=== PATIENT | female | born 1985 | race Two or more races ===

== ENCOUNTER 2025-02-09 01:05 | Emergency (ER) | payer MEDICAID, SELFPAY ==
[2025-02-09 01:07] VITALS: BMI 39.1
[2025-02-09 01:58] VITALS: BP 129/75; PULSE 95; RESP 18; TEMP 36.8; O2SAT 97
--- NOTE | 2025-02-09 02:15 | EKG_ITS ---
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
--- NOTE | 2025-02-09 02:15 | XR_ITS ---
Examination: CT brain head without contrast. 2-D sagittal coronal reconstructions Date and time of exam:February 09, 2025, 0237 hrs. Indications: Onset headaches today CTDI: vol (mGy):46.90 DLP: (mGycm):917 Technique: Multiple CT axial sections of the brain have been obtained, 5 mm slice thickness. Contrast has not been administered. 2-D sagittal, coronal reconstructions have been obtained Low dose protocols were performed. One or more of the following dose reduction techniques were used; automated exposure control, adjustment of the mA and/or KV according to patient size, use of iterative reconstruction technique. Findings: No significant ventricular enlargement. Intra-axial or extra-axial hemorrhage density is not seen. No mass effect or midline shift Basal cisterns are not remarkable. Fourth ventricle is midline. Cranial vault intact. Impression: Negative for acute hemorrhage, mass effect or midline shift
--- NOTE | 2025-02-09 02:16 | PD.EDRME ---
Rapid Medical Screening Exam RME Arrival date/time: 02/09/25 01:05 This is a case of 40-year-old female with no medical history came in in the emergency room due to headache and chest pain for 1 day associated with dizziness and nausea denies any head injury denies any blurring of vision persistence of the symptoms this patient decided to start consult her in the emergency room Chief Complaint: General Adult/Misc Complain Time Seen by Provider: 02/09/25 01:34 Vital signs: Vital Signs Temperature 98.3 F 02/09/25 01:58 Pulse Rate 95 02/09/25 01:58 Respiratory Rate 18 02/09/25 01:58 Blood Pressure 129/75 02/09/25 01:58 Pulse Oximetry (%) 97 02/09/25 01:58 Oxygen Delivery Method Room Air 02/09/25 01:58
[2025-02-09 02:55] LABS: Basophils # (Auto) 0.1 Thou/mm3 (0.0-0.2); Basophils % (Auto) 1 % (0-2.5); Eosinophils # (Auto) 0.2 Thou/mm3 (0.0-0.5); Eosinophils % (Auto) 2 % (0-10); Hematocrit 35.8 % (36.0-46.0); Hemoglobin 11.4 g/dL (12.0-16.0); Immature Granulocytes Auto 0.02 Thou/mm3 (0.00-0.00); Lymphocytes # (Auto) 3.2 Thou/mm3 (1.0-4.8); Lymphocytes % (Auto) 34 % (10-50); Mean Corpuscular HGB Conc 31.8 g/dl (31.0-37.0); Mean Corpuscular Hemoglobin 25.9 pg (25.0-35.0); Mean Corpuscular Volume 81 fL (80-100); Monocytes # (Auto) 0.7 Thou/mm3 (0.0-0.8); Monocytes % (Auto) 7 % (0-12); Neutrophils # (Auto) 5.2 Thou/mm3 (1.8-7.7); Neutrophils % (Auto) 56 % (37-80); Nucleated Red Blood Cell # 0.00 Thou/mm3 (0.00-0.00); Nucleated Red Blood Cell % 0 /100 WBC (0); Platelet Count 361 Thou/mm3 (140-440); RDW Standard Deviation 46.4 fL (36.4-46.3); Red Blood Count 4.41 Miln/mm3 (4.00-5.20); White Blood Count 9.4 Thou/mm3 (3.6-11.0)
--- NOTE | 2025-02-09 02:59 | PRELIM_ITS ---
CT scan of the head without intravenous contrast (axial sections with sagittal and coronal reformats). February 09, 2025 0237 hours Clinical History: headache Comparison: None Findings: There is no intracranial hemorrhage, extra-axial collection, mass, mass-effect or midline shift. There is good zaragoza-white differentiation. There is no CT evidence of acute large vascular territorial infarct. Ventricles are not enlarged or effaced. Minimal basal ganglia calcification suggested in the cerebral hemispheres. Visualized paranasal sinuses and tympanomastoid cavities are clear. The bony calvarium is intact. Impression: No intracranial hemorrhage, mass-effect or midline shift. No CT evidence of acute large vascular territorial infarct. Report Electronically Signed By: Aguilar Jackson 02/09/2025 2:59:24 AM [EST]
[2025-02-09 03:20] LABS: Alanine Aminotransferase 23 U/L (10-49); Albumin, Serum 4.9 gm/dL (3.5-5.0); Albumin/Globulin Ratio 1.4 (1.2-2.2); Alkaline Phosphatase 92 U/L (46-116); Anion Gap 9 (7-16); Aspartate Amino Transferase 21 U/L (0-34); BUN/Creatinine Ratio 13 Ratio (12-20); Bilirubin,Total 0.3 mg/dL (0.3-1.2); Blood Urea Nitrogen 9 mg/dL (9-23); Calcium 9.6 mg/dL (8.3-10.6); Calcium (Corrected) 9.6 mg/dL (8.5-10.1); Carbon Dioxide 23.8 mMol/L (20.0-31.0); Chloride 106 mMol/L (98-107); Creatinine (Component) 0.7 mg/dL (0.6-1.3); Estimated Creatinine Clearance 117.3 mL/min (>60); Globulin 3.6 gm/dL (2.3-3.5); Glucose 147 mg/dL (74-106); Osmolality,Calculated 279 (275-295); Potassium 3.7 mMol/L (3.4-5.1); Sodium 139 mMol/L (136-145); Total Protein 8.5 gm/dL (5.7-8.2); Troponin I < 0.002 ng/mL (0.0-0.045); eGFR > 60 See Note
--- NOTE | 2025-02-09 03:32 | EDNOTE_ITS ---
ED Headache RME/HPI General Chief Complaint: General Adult/Misc Complain Stated Complaint: FACE GETS FLUSHED AND HEADACHE Time Seen by Provider: 02/09/25 01:34 Arrival date/time: 02/09/25 01:05 RME / HPI RME / HPI Narrative: 02/09/25 01:05 This is a case of 40-year-old female with no medical history came in in the emergency room due to headache and chest pain for 1 day associated with dizziness and nausea denies any head injury denies any blurring of vision persistence of the symptoms this patient decided to start consult her in the emergency room DR. MENDOSA MAIN ED EVALUATION: Patient present bi-temporal/occipital throbbing GOSS of 2-3 days duration, associated nausea without emesis or photosensitivity. No exacerbation with exertion. No UE/LE weakness or parasthesis. Denies fever, URI, or flu-like symptoms. PMH: DM, HTN, Hypercholesterolemia. PSH: . Allergies: None. Related Data Home Medications ?Medication ?Instructions ?Recorded ?Confirmed metformin 500 mg tablet 500 mg PO BID 06/30/2007/10 Previous Rx's ?Medication ?Instructions ?Recorded hydrocodone 5 mg-acetaminophen 325 1 tab PO Q8H PRN pa in #7 tabs 07/12/20 mg tablet ([place]) ibuprofen 400 mg tablet 400 mg PO Q8H PRN pain #14 t abs 07/12/20 iygebpxtbk-olnnbvhrbbure-jskzccec 1 cap PO Q8H PRN alex n #20 caps 02/09/25 50 mg-300 mg-40 mg capsule (Fioricet) prochlorperazine maleate 5 mg 5 mg PO BID PRN nausea a nd 02/09/25 tablet (Compazine) vomiting #10 tabs Allergies Allergy/AdvReac Type Severity Reaction Status Date / Time No Known Allergies Allergy Verified 02/09/25 01:12 Review of Systems Review of Systems Systems Reviewed: All systems reviewed, normal except as documented Past Medical History Past Medical History CARDIAC: Positive Hypercholesterolemia and Hypertension GASTROINTESTINAL: Positive Gastrointestinal Disorders (HX. GASTRITIS.) REPRODUCTIVE: Positive Previous Pregnancies ENDOCRINE: Positive Endocrine Disorders and Diabetes Mellitus Type 2 OTHER HISTORY: Positive Hospitalization (CHILDBIRTH) and Chicken Pox Family History FAMILY HISTORY: Positive Family Cancer (SISTER AND MATERNAL AUNT UTERINE CA.) and Family Surgery (SISTER HYSTERECTOMY) ED Exam Narrative Physical exam: GEN. APPEARANCE: The patient is alert awake oriented X-3 in no distress but c/o mild GOSS, lying down comfortably, does not look ill/toxic. Patient has good eye contact. Patient is cooperative. VITALS: All vitals were reviewed and the pulse ox is 97% on room air which is normal according to my interpretation. HEENT: Normocephalic, atraumatic. Pupils are equal and reactive. Fundoscopic exam normal. Oral mucosa is moist. Patent Nares. Positive allodynia. Fundoscopic exam normal. Positive allodynia. NECK: Supple, nontender, no thyromegaly, no meningismus, no JVD, no step offs CHEST: Symmetrical, atraumatic, and with equal expansion , Nontender on palpation no deformity and no crepitus. CARDIOVASCULAR: Heart regular rhythm no murmur or gallop rub or extra beats. LUNGS: Clear to auscultation bilaterally with symmetrical chest rise. No laboring tachypnea or wheezing. No intercostal subcostal retraction. No rales and no rhonchi. ABDOMEN: Soft, flat, nontender to palpation, no guarding or rebound tenderness. There are no abnormal masses palpated. Active and normal bowel sounds. EXTREMITIES: Nontender. No edema. No cyanosis. Patient is able to move all 4 extremities well, with full ROM and good CSM. SKIN: Warm and dry, no jaundice or rashes noted. MUSCULOSKELETAL: No lubar or midline bony tenderness. There is no CVA tenderness. No paraspinal muscle spasm or tenderness. NEURO: Patient is LUQUE x 4, Cranial nerves II through XII grossly intact. There is no focal neurologic deficits noted. GCS is 15, PNS and ACID PLANT HELPER appear grossly intact. Brandy, qdzbmd-ek-ggkl and gait. PSYCHIATRIC: Patient is in normal mood and affect, cooperative, no SI or HI or hallucinations. Course Quality Measures none Orders Category Date Time Status EKG (ED ONLY) *Do not use* NOW Care 02/09/25 02:[address] head/brain wo con Stat Exams 02/09/25 02:15 Completed EKG (ED Only) Stat Exams 02/09/25 02:15 Draft CBC Stat Lab 02/09/25 02:40 Completed Comprehensive Metabolic Panel Stat Lab 02/09/25 02:40 Completed Troponin I Stat Lab 02/09/25 02:40 Completed HYDROcodone*/APAP 5/325 [[place] 5/325] Med 02/09/25 04:00 Discontinued 1 tab PO X1 ONE Prochlorperazine Maleate [Compazine] Med 02/09/25 04:00 Discontinued 5 mg PO X1 ONE Vital Signs Vital signs: Vital Signs Temperature 98.3 F 02/09/25 01:58 Pulse Rate 95 02/09/25 01:58 Respiratory Rate 18 02/09/25 01:58 Blood Pressure 129/75 02/09/25 01:58 Pulse Oximetry (%) 97 02/09/25 01:58 Oxygen Delivery Method Room Air 02/09/25 01:58 Headache MDM Narrative MDM Narrative:: Scribe Attestation: Norah Flowers, am scribing for and in the presence of Dr. Mendosa. Provider Notation: Although this document has been carefully reviewed, there may still be some phonetic and other typographical errors. These errors are purely grammatical due to imperfections in the software program and should not be construed in any way to compromise the substance of the patient's medical care during this visit. Patient present bi-temporal/occipital throbbing GOSS of 2-3 days duration, associated nausea without emesis or photosensitivity. No exacerbation with exertion. No UE/LE weakness or parasthesis. Please see PE findings. Laboratory markers including CBC demonstrate normal WBC. Patient with stable anemia. Serum chemistries essentially unremarkable. UA with evidence of infection. CT hea d/brain was obtained and unremarkable for acute process. Patient's presentation slightly suggestive of migranous pattern. Will treat accordingly for new onset migraine. Disposition, patient will be discharged to home on a prescription for fenergan and ferunial. Patient data External records reviewed:: [facility] previous records (Reviewed prior ED records from 07/04/23. Patient was seen for Costochondritis.) Clinical information provided by:: patient Social determinants that could affect healthcare access:: none Patient has the following chronic illnesses:: DM, HTN, Hypercholesterolemia, Gastritis How is presenting disease/condition affected by chronic disease/condition?: exacerbated by Evaluation data The following diagnostics were reviewed and interpreted by me:: lab results, radiology exam(s) and EKG tracing(s) (EKG at 02:19 shows normal sinus rhythm at 96, leftward axis, no ectopy, no signs of acute ischemia, per my interpretation.) Lab and/or radiology exams considered but not ordered:: None Interpretation Summary: RADIOLOGY Head/Brain CT: Findings: No significant ventricular enlargement. Intra-axial or extra-axial hemorrhage density is not seen. No mass effect or midline shift Basal cisterns are not remarkable. Fourth ventricle is midline. Cranial vault intact. Impression: Negative for acute hemorrhage, mass effect or midline shift Medications / Prescriptions Medications or Prescriptions considered but not ordered:: None Medication administrations:: Medication Administration History Discontinued Medications Hydrocodone Bitart/Acetaminophen (Hydrocodone/Apap 5/325 Tablet) 1 tab PO X1 ONE Stop: 02/09/25 04:01 Last Admin: 02/09/25 04:55 Dose: 1 tab Documented By: FRANC Prochlorperazine Maleate (Prochlorperazine Maleate 5 Mg Tablet) 5 mg PO X1 ONE Stop: 02/09/25 04:01 Last Admin: 02/09/25 04:56 Dose: 5 mg Documented By: FRANC See above if any Consultations Consultation(s) initiated? (list below): No Diagnosis Differential diagnosis headache: migraine, tension headache, headache and sinusitis Most likely diagnosis given after review of the tests above:: New onset migraine Admission Indicated Admission indicated?: not indicated Explain why admission is indicated or not indicated:: Patient does not meet admission criteria. Admission Request Was there a request for admission?: No Disposition Plan Disposition Plan: Discharge Discharge Attestation Discharge Attestation: The patient and all family members were given an opportunity to ask questions and understood the discharge instructions. Discharge instructions specifically effects, indications for sooner follow up or return to the emergency department, and the expected course of current diagnosis. Patient condition: Stable Discharge Plan Plan Patient Disposition: HOME (Self Care) Discharge Disposition comment: Stable Prescriptions/Referrals Prescriptions/Med Rec: New umuwezdjxh-mvcowpzxrrtye-lbdt [Fioricet] 50-300-40 mg capsule 1 cap PO Q8H PRN (Reason: pain) Qty: 20 0RF prochlorperazine maleate [Compazine] 5 mg tablet 5 mg PO BID PRN (Reason: nausea and vomiting) Qty: 10 0RF Rx Instructions: may also take every 6 hrs for headache No Action metformin 500 mg Tablet 500 mg PO BID hydrocodone-acetaminophen [[place]] 5-325 mg tablet 1 tab PO Q8H MDD 3 PRN (Reason: pain) Qty: 7 0RF ibuprofen 400 mg tablet 400 mg PO Q8H MDD 4 PRN (Reason: pain) Qty: 14 0RF Referrals: No Primary/Family,Physician [Primary Care Provider] - In 1 week Problem List Clinical Impression: Headache, migraine Patient/Caregiver Discharge Instructions Discharge Activity: activity as tolerated Education Materials: ED Headache, Migraine, Classic Additional Instructions: Medications as directed. Dark room close cool compresses/follow-up with primary care doctor in 5 to 7 days return if worsening. Print Language: Greenlandic Stand Alone Forms: Ingrid Award Info., Patient Portal Info Letter
[2025-02-09] MEDS: HYDROcodone/APAP 5/325 TABLET 1 TAB PO (04:55)
[2025-02-09] MEDS: PROCHLORPERAZINE MALEATE 5 MG TABLET PO (04:56)
== END 2025-02-09 05:22 | disposition home or self-care (01) ==
PROVIDERS: Nurse Practitioner Family; Emergency Provider Emergency Medicine
DX: G43.909 Migraine, unspecified, not intractable, without status migrainosus (principal); R94.31 Abnormal electrocardiogram [ECG] [EKG]; I10 Essential (primary) hypertension; E78.00 Pure hypercholesterolemia, unspecified
CPT/HCPCS: 36415; 70450; 80053; 81001; 81025; 84484; 85025; 93005; 99284; Q0164; A9270

== ENCOUNTER 2025-04-15 14:00 | Outpatient (AMB) | payer MEDICAID, SELFPAY ==
[2025-04-15 14:46] VITALS: BP 133/81; PULSE 100; RESP 18; TEMP 36.2; O2SAT 98; BMI 38.1
--- NOTE | 2025-04-15 14:46 | OBCLNT_ITS ---
Vital Signs 04/15/25 14:46 Height 1.57 m Height Method Stated Weight 93.95 kg Weight Measurement Method Standing Scale BMI 38.1 BP 133/81 H Blood Pressure Source Automatic Cuff Blood Pressure Location Left Upper Arm Position Sitting Respiration 18 Pulse 100 Pulse Source Monitor Temp 97.2 F Temp Source Oral Pulse Oximetry (%) 98 Oxygen Delivery Method Room Air Allergies/Home Meds Allergies & Medications Allergies No Known Allergies Allergy (Verified 04/15/25 14:47) Medication Reconciliation metformin 500 mg tablet 500 mg PO BID 06/30/20 [History Confirmed 04/15/25] hydrocodone 5 mg-acetaminophen 325 mg tablet ([place]) 1 tab PO Q8H PRN pain #7 tabs 07/12/20 [Rx Confirmed 04/15/25] ibuprofen 400 mg tablet 400 mg PO Q8H PRN pain #14 tabs 07/12/20 [Rx Confirmed 04/15/25] vukfufqjoy-lqucmbufzszbs-nytilhop 50 mg-300 mg-40 mg capsule (Fioricet) 1 cap PO Q8H PRN pain #20 caps 02/09/25 [Rx Confirmed 04/15/25] prochlorperazine maleate 5 mg tablet (Compazine) 5 mg PO BID PRN nausea and vomiting #10 tabs 02/09/25 [Rx Confirmed 04/15/25] blood sugar diagnostic (Blood Glucose Test strips) #50 ea 04/15/25 [Rx] lancets #100 ea 04/15/25 [Rx] Intake Visit Data Collection New Patient or Established: Established Patient (seen at [facility] within 3 years) Reason for Visit:: OB TRANSFER Seen by Clinical Staff ONLY (RN/MA): No Resin Mixer Required: No Do You Feel Safe at Home: Yes Authorities Contacted: N/A PCP or OBGYN visit in last 3 months: Yes Date of Last PCP or OBGYN visit: 02/09/25 Hx Now: Yes Are you currently on any form of Control: No Last menstrual period: 12/16/24 Pain Present Currently: No Pain Scale Used: Terrell-Rosales/Numerical Pain scale:: 0 Smoking Status Smoking Status: Never smoker Immunizations Flu Vaccine in the Last 12 Months: No Flu Vaccine Exclusion Criteria: No Exclusion Criteria Questionnaires Covid-19 Vaccine Questionnaire Has patient been vacinated for Covid-19 Have you been vacinated for Covid-19: Yes PHQ-9 PHQ-2 Over the last 2 weeks, how often have you been bothered by any of the following problems? 1. Little interest or pleasure in doing things: not at all 2. Feeling down, depressed, or hopeless: not at all Total score: 0 PHQ-9 3. Trouble falling or staying asleep, or sleeping too much: Not at all 4. Feeling tired or having little energy: Not at all 5. Poor appetite or overeating: Not at all 6. Feeling bad about yourself - or that you are a failure or have let yourself or your family down: Not at all 7. Trouble concentrating on things, such as reading the newspaper or watching television: Not at all 8. Moving or speaking so slowly that other people could have noticed? - Or the opposite - being so fidgety or restless that you have been moving around a lot more than usual: not at all 9. Thoughts that you would be better off or of hurting yourself in some way: Not at all Total score: 0 If you checked off any problems, how difficult have these problems made it for you to do your work, take care of things at home, or get along with other people?: not difficult at all Source: Developed by Drs. Monty Encinas, Cindy Adams, Emmanuel English and colleagues, with an educational golden from [employer]. Depression screen completed yes Social History Living Situation History Marital Status: Lives With: Family Housing: Apartment Tobacco History Smoking Status: Never smoker Second Hand Smoke Exposure: No Alcohol History Alcohol Intake: Never Domestic Abuse History Do You Feel Safe at Home: Yes History of Present Illness HPI Narrative 40-year-old 3 para 2 for OBI. Patient's initial visit was that [facility]. She has records with her including labs. Last. January 02, 2025. This gives an EDC of October 09, 2025. Patient has a history of a x 1 with her second . There was oligo. History of type 2 diabetes. Patient was diagnosed prior to is prediabetic at 3-hour GTT was done and it was abnormal. Patient also has chronic hypertension. She is taking nifedipine ER 30 mg daily. And her blood pressures she states have been mostly 130s over 80s. Denies social habits. No leaking no bleeding. Patient has an ultrasound pending but she is not sure reports that. And patient was told to stop her metformin 500 mg twice daily. 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 GASTRITIS.), No Hx Renal Disease, No Hx Diabetes Mellitus Type 1 and Yes Hx Diabetes Mellitus Type 2 OB Initial Visit OB Flowsheet OB Flowsheet Initial Weight: Not Recorded Date -?-?-?-?-?-?-?-?-?-?-?-?- EGA Weight BP Alb Glu CTX Pres Fundal ht FHR Mov Dilation Station Effacement Hx Notes Visit Note 04/15/25 -?-?-?-?-?-?-?-?-?-?-?-?- 14w 5d 93.95 kg 133/81 absent unknown 15 156 absent 40-year-old 3 para 2 for OBI. She is a transfer from [facility] with records. Last period January 02. This gives an EDC of October 09, 2025. Patient has a history of prediabetes. She had a 3-hour with the that was abnormal. Patient was started then with metformin 500 twice daily but she was told to stop it. Patient also has chronic hypertension. She takes nifedipine ER 30 mg. Patient goes to [facility] for both the diabetes and her chronic hypertension. Denies leaking, bleeding, contractions. She does not feel movement yet and patient stopped her metformin and was told to stop until she saw a provider. Patient is also a previous x 1 Schedule a maternal- medicine appointment at [facility]. Continue the nifedipine ER 30 mg. And then I consulted OB and patient is to restart her metformin 500 twice daily. She is to continue to follow GDM diet. To walk 40 minutes a day. 10 minutes after meals. And log her sugars 4 times a day. Bring those with her for her next appointment for evaluation. I advised patient to see her primary care at [facility] this week. Get an order for an EKG and also eye exam. We did a 24-hour protein was ordered today along with NIPT and spinal muscular atrophy screen. Discussed SAB precautions and return in 3 weeks for AFP and follow-up Menstrual History Menstrual reliability: definite Flow: normal Menstrual regularity: regular Monthly: Yes Age at menarche: 12 On control pills at conception: No OB History : 3 Para: 2 # of Living Children: 2 Delivery History 1st : Child's name: NOT PROVIDED date: 08/19/07 sex: female Delivery type: vaginal History of depression before or after : No 2nd : Child's name: NOT PROVIDED date: 07/10/20 sex: female Delivery type: History of depression before or after : No Infection History & Risk Evaluation History of STDs: none HIV risk evaluation: low risk Hepatitis B risk evaluation: low risk Patient or partner has history of Genital Herpes: No Varicella/chicken pox status: immunized Genetic Screening & History Genetic Screening/Teratology Counseling - Includes patient, baby's father, or anyone in either family with: 1. Patient's age 35 years or older as of estimated date of delivery: Yes 2. Thalassemia (Yemeni, Israeli, Mediterranean, or Background); MCV less than 80: No 3. Neural Tube Defect (Meningomyelocele, Spina Bifida, or Anencephaly): No 4. Congenital Heart Defect: No 5. Down Syndrome: No 6. Jerry-Sachs (Ashkenazi Anglican, Cajun, Thai Fallon): No 7. Andre Disease (Ashkenazi Anglican): No 8. Familial Dysautonomia (Ashkenazi Anglican): No 9. Sickle Cell Disease or Trait (): No 10. Hemophilia or other blood disorders: No 11. Muscular Dystrophy: No 12. Cystic Fibrosis: No 13. Raf's Chorea: No 14. Mental Retardation/Autism: No 15. Other inherited genetic or chromosomal disorder: No 16. Maternal Metabolic Disorder (EG,TYPE 1 Diabetes, PKU): No 17. Patient or baby's father had a child with defects not listed above: No 18. Recurrent loss or a stillbirth: No 19. Medications (including supplements, vitamins, herbs or otc drugs)/illicit/recreational drugs/alcohol since last menstrual period: No 20. Any other: No Infection History 1. Live with someone with TB or exposed to TB: No 2. Rash or viral illness since last menstrual period: No 3. Hepatitis B,C: No Other (see comments) Source: [employer] Review of Systems Review of Systems Systems Reviewed: All systems reviewed, normal except as documented Exam General Limitations: no limitations General Appearance: alert, in no apparent distress, comfortable, cooperative, healthy appearing, well developed and well groomed Head Head exam: atraumatic, normocephalic and normal inspection Chest Chest inspection: Present normal inspection and symmetric chest wall rise Resp Respiratory exam: Present normal lung sounds bilaterally Card Cardiovascular exam: Present regular rate, normal rhythm and normal heart sounds Abdominal Abdominal exam: Present soft and normal bowel sounds Psych Psychiatric exam: Present normal affect and normal mood Office Procedures OBC Clinic LOC & Office Proc's Nursing/Assessment Patient Status: Established Patient OB Clinic Nursing Assessment: Medication Reconciliation, Update PMH in EMR and Vital Signs OB Clinic Coordination of Care: Consent,records obtained, informed consent, Education Simp Pt/Fam, Lab and Imaging orders, Results/Orders obtained and Staff clarify orders Special Needs: Heart tones Established Patient Charge Established Patient Point Assignment: 110 Established Patient Point Charge: EP Level 3 (80-115) Assessment & Plan Diagnosis / Problem List (1) High-risk in third trimester: Status: Acute (2) Advanced maternal age (AMA) in : Status: Acute (3) Chronic hypertension with exacerbation during in third trimester: Status: Acute (4) Diet controlled gestational diabetes mellitus (GDM) in third trimester: Status: Acute Plan Restart metformin 500 twice daily. Continue nifedipine extended release 30 mg daily. Patient to continue monitoring her blood sugars 4 times a day. I refilled her lancets and test strips. I reviewed diet and weight gain. I asked patient to continue to log her blood sugar results and bring them to her next visit. Reviewed labs today. Ordered 24-hour protein baseline. And then spinal muscular atrophy was ordered. And NIPT ordered. Schedule patient with maternal- medicine for and anatomy scan. And patient is also scheduled maybe at [facility] and she was advised to keep that. Walk 40 minutes a day and 10 minutes after meals. Patient is making an appointment with her primary care for EKG and eye exam at [facility]. Will schedule patient with OB because of previous x 1, chronic hypertension and type II DM on metformin return in 3 weeks for AFP and follow-up OB check Additional Plan Follow Up: 3 Weeks (OBC/AFP)
== END 2025-04-15 15:22 | disposition home or self-care (01) ==
LOC: HODSOBC 14:00
PROVIDERS: Supervising Provider Advanced Practice Midwife; Visit Provider Advanced Practice Midwife
DX: O09.522 Supervision of elderly multigravida, second trimester (principal); O09.892 Supervision of other high risk pregnancies, second trimester; O10.912 Unspecified pre-existing hypertension complicating pregnancy, second trimester; O24.112 Pre-existing type 2 diabetes mellitus, in pregnancy, second trimester; O09.292 Supervision of pregnancy with other poor reproductive or obstetric history, second trimester; O34.219 Maternal care for unspecified type scar from previous cesarean delivery; Z3A.14 14 weeks gestation of pregnancy; Z79.84 Long term (current) use of oral hypoglycemic drugs; Z79.899 Other long term (current) drug therapy
CPT/HCPCS: 99213; G0463

== ENCOUNTER → 2025-04-22 | Outpatient (CLI) | payer MEDICAID, SELFPAY ==
--- NOTE | 2025-04-22 12:30 | XR_ITS ---
Examination: Complete OB ultrasound, greater than 14 weeks, transabdominal Date and time of exam: April 22, 2025, 1234 hours INDICATIONS: Size dates discrepancy Technique: Obstetrical ultrasound images less than 14 weeks performed via transabdominal imaging Findings: A normal shaped single intrauterine gestation is present in the uterus. presentation variable Cardiac motion 141 bpm Placenta fundal grade 1 Umbilical cord insertion 3 vessel seen Amniotic fluid index 15.0 cm Ovaries obscured by bowel gas Ultrasonographic survey of visible and placental structures unremarkable. Amniotic fluid volume appears appropriate for this estimated gestational age. Estimated gestational age 16 weeks 2 days Estimated weight 145.6 g. bladder stomach and spine seen IMPRESSION: Viable intrauterine gestation in variable presentation Estimated gestational age 16 weeks 2 days Estimated weight 145.6 g
== END | disposition home or self-care (01) ==
LOC: CDIM 12:19
PROVIDERS: PCP Nurse Practitioner Family; Referring Provider Nurse Practitioner Family; Visit Provider Nurse Practitioner Family
DX: O26.841 Uterine size-date discrepancy, first trimester (principal); Z3A.16 16 weeks gestation of pregnancy
CPT/HCPCS: 76801

== ENCOUNTER 2025-05-13 09:24 | Outpatient (AMB) | payer MEDICAID, SELFPAY ==
--- NOTE | 2025-05-13 09:29 | OBCLNT_ITS ---
Vital Signs 05/13/25 09:43 Height 1.57 m Height Method Stated Weight 100.698 kg Weight Measurement Method Standing Scale BMI 40.8 BP 145/78 H Blood Pressure Source Automatic Cuff Blood Pressure Location Left Upper Arm Position Sitting Respiration 18 Pulse 91 Pulse Source Monitor Temp 97.2 F Temp Source Oral Pulse Oximetry (%) 98 Oxygen Delivery Method Room Air Allergies/Home Meds Allergies & Medications Allergies No Known Allergies Allergy (Verified 05/13/25 09:45) Medication Reconciliation hzswuutajf-xyidypdcadtwa-eikjjzcx 50 mg-300 mg-40 mg capsule (Fioricet) 1 cap PO Q8H PRN pain #20 caps 02/09/25 [Rx Confirmed 05/13/25] blood sugar diagnostic (Blood Glucose Test strips) #100 ea 05/13/25 [Rx] blood-glucose meter #1 ea 05/13/25 [Rx] lancets 21 gauge #100 ea 05/13/25 [Rx] metformin 1,000 mg tablet 1,000 mg PO BIDWMEAL 30 days #60 tabs 05/13/25 [Rx] nifedipine 60 mg tablet,extended release 60 mg PO QDAY #30 tabs 05/13/25 [Rx] Immunizations Immunizations Flu Vaccine in the Last 12 Months: No Flu Vaccine Exclusion Criteria: Refused by Patient Care OB Visit Log OB Flowsheet Initial Weight: Not Recorded Date -?-?-?-?-?-?-?-?-?-?-?-?- EGA Weight BP Alb Glu CTX Pres Fundal ht FHR Mov Dilation Station Effacement Hx Notes Visit Note 04/15/25 -?-?-?-?-?-?-?-?-?-?-?-?- 14w 5d 93.95 kg 133/81 absent unknown 15 156 absent 40-year-old 3 para 2 for OBI. [facility]. Last period January 02. This gives an EDC of October 09, 2025. Patient has a history of prediabetes. She had a 3-hour with the that was abnormal. Patient was started then with metformin 500 twice daily but she was told to stop it. Patient also has c hronic hypertension. She takes nifedipine ER 30 mg. Patient goes to [facility] for both the diabetes and her chronic hypertension. Denies leaking, bleeding, contractions. She does not feel movement yet and patient stopped her metformin and was told to stop until she saw a provider. Patient is also a previous x 1 Schedule a maternal- medicine appointment at [facility]. Continue the nifedipine ER 30 mg. And then I consulted OB and patient is to restart her metformin 500 twice daily. She is to continue to follow GDM diet. To walk 40 minutes a day. 10 minutes after meals. And log her sugars 4 times a day. Bring those with her for her next appointment for evaluation. I advised patient to see her primary care at [facility] this week. Get an order for an EKG and also eye exam. We did a 24-hour protein was ordered today along with NIPT and spinal muscular atrophy screen. Discussed SAB precautions and return in 3 weeks for AFP and follow-up 05/13/25 -?-?-?-?-?-?-?-?-?-?-?-?- 18w 5d 100.698 kg 145/78 absent unknown 172 absent - She reports taking her blood pressure medication (labetalol) once in the morning as prescribed. - Current blood pressure remains eleva hua at 133/81 mmHg despite medication compliance. - Patient has pre-existing diabetes that was present before this . - Previously was taking metformin 1000 mg twice daily (total 2000 mg daily). - Reports she does not currently take any diabetes medication. - Does not have a glucometer to check blood sugars at home. - She has been receiving care w syd Alvarez (presumably another provider) up to this point. - Patient has an upcoming ultrasound kishan ointment scheduled in [place]. - She reports knowing how to use a glucometer from prior experience . - Increase blood pressure medication dose (currently taking labetalol once in the morning) - Start metformin 1000mg twice daily for diabetes management - Provide glucometer and supplies for bl ood sugar monitoring - Patient to check blood sugars and brin g numbers for medication adjustment - Follow up in 2 weeks to review blood s ugar readings - Continue care with Kim BUTTERFIELD Calculator Estimated Delivery Date Method Current WG Current Estimate 10/09/25 LMP (Certain) 18w 5d Notes Visit Date: 04/15/25 Last Updated by: Kim Conway CNM 40 yo . prev c/sx1. type 2 DM and CHTN O+,abs-, rpr;;nr, rub imm, HBSAG-,HIV-, HC-, GC/CT-, UT-,UA-,CF-, /, A1c: 6.6, glucose: 121. TSH wnl, ALT: 34, creatine: 0.61, BUN/creatine ratio: 16 Office Procedures OBC Clinic LOC & Office Proc's Nursing/Assessment Patient Status: Established Patient OB Clinic Nursing Assessment: Medication Reconciliation, Update PMH in EMR and Vital Signs OB Clinic Coordination of Care: Consent,records obtained, informed consent, Education Simp Pt/Fam, Lab and Imaging orders, Results/Orders obtained and Staff clarify orders Special Needs: Heart tones Established Patient Charge Established Patient Point Assignment: 110 Established Patient Point Charge: EP Level 3 (80-115) Assessment & Plan Diagnosis / Problem List (1) Type 2 diabetes mellitus affecting in second trimester, antepartum: Status: Acute (2) Supervision of high risk , unspecified, second trimester: Status: Acute (3) Chronic hypertension with exacerbation during in third trimester: Status: Acute (4) Advanced maternal age (AMA) in : Status: Acute Plan Problem List - Gestational diabetes mellitus - Chronic hypertension in - Intrauterine growth restriction Assessment The patient is a 3, para 2 at 18 weeks and 5 days gestation with chronic hypertension currently managed on labetalol with persistently elevated blood pressure of 133/81 mmHg despite medication compliance, requiring dose adjust ment. She has gestational diabetes mellitus with pre-existing diabetes mellitus that was previously managed with metformin 1000 mg twice daily, now requiring glucometer monitoring and continued metformin therapy. heart rate is 171 bpm, which is within normal limits for gestational age. Plan - Increase blood pressure medication dose (currently taking labetalol once in the morning) - Start metformin 1000mg twice daily for diabetes management - Provide glucometer and supplies for blood sugar monitoring - Patient to check blood sugars and bring numbers for medication adjustment - Follow up in 2 weeks to review blood sugar readings - Continue care with Kim 1. Progress Reviewed gestational age (18 weeks and 5 days), growth, and heart rate (171, normal). Planned frequent visits (every 2 weeks until 36 weeks, then weekly). 2. Instructed patient to monitor movements and report decreases immediately. 3. Testing Counseled on routine third-trimester labs per guidelines. Discussed potential need for ultrasound or monitoring based on risk factors. 4. Preeclampsia Precaution Educated on preeclampsia signs: severe headache, vision changes, right upper quadrant pain, sudden swelling. Advised urgent reporting of symptoms and discussed blood pressure monitoring if high risk. 5. Labor Precautions Reviewed labor signs: regular contractions, pelvic pressure, back pain, bleeding, or fluid leakage. Instructed to seek immediate care for these symptoms. 6. Lifestyle and Delivery Preparation Reinforced vitamins, nutrition, and safe activity. Discussed plan, pain management, and . Advised on labor preparation (e.g., hospital bag) and expectations. 7. Psychosocial Support Assessed emotional well-being and offered resources for mental health or parenting support.
[2025-05-13 09:43] VITALS: BP 145/78; PULSE 91; RESP 18; TEMP 36.2; O2SAT 98; BMI 40.8
== END 2025-05-13 09:42 | disposition home or self-care (01) ==
LOC: HODSOBC 09:24
PROVIDERS: Supervising Provider Obstetrics & Gynecology; Visit Provider Obstetrics & Gynecology
DX: O09.892 Supervision of other high risk pregnancies, second trimester (principal); O10.912 Unspecified pre-existing hypertension complicating pregnancy, second trimester; O36.5920 Maternal care for other known or suspected poor fetal growth, second trimester, not applicable or unspecified; O24.112 Pre-existing type 2 diabetes mellitus, in pregnancy, second trimester; O09.292 Supervision of pregnancy with other poor reproductive or obstetric history, second trimester; O34.219 Maternal care for unspecified type scar from previous cesarean delivery; O09.522 Supervision of elderly multigravida, second trimester; Z3A.18 18 weeks gestation of pregnancy; Z79.899 Other long term (current) drug therapy; Z79.84 Long term (current) use of oral hypoglycemic drugs; Z28.21 Immunization not carried out because of patient refusal
CPT/HCPCS: 99213; G0463